=== PATIENT | male | born 1955 | race Caucasian/White ===

== ENCOUNTER 2021-09-07 09:44 | Inpatient (IN) ==
[~2021-09-07 09:44] MED LIST: 0.9 % Sodium Chloride 1,000 ML IVC ONE; Acetaminophen IV 1,000 MG/100 ML BAG IVPB ONE
[2021-09-07] MEDS ORDERED: Famotidine 20 MG/2 ML VIAL IVP ONE (10:00)
[2021-09-07] MEDS ORDERED: CeFAZolin Syr 2,000MG/20 ML 2,000 MG/20 ML SYRINGE IVPB ONE (10:14)
[2021-09-07] MEDS ORDERED: Ringers Solution, Lactated 1,000 ML IVC SCH (10:15)
[2021-09-07] MEDS ORDERED: *HR* FentaNYL (PF) 100 MCG/2 ML VIAL ONE (10:28)
[2021-09-07] MEDS ORDERED: *HR* Rocuronium Bromide 50 MG/5 ML VIAL ONE ×2 (10:28→12:48)
[2021-09-07] MEDS ORDERED: *HR* Propofol 200 MG/20 ML VIAL IVP ONE (10:28)
[2021-09-07] MEDS ORDERED: *HR* Midazolam HCl 2 MG/2 ML VIAL ONE (10:28)
[2021-09-07] MEDS ORDERED: Lidocaine -MPF 2% 5 ML VIAL ONE ×2 (10:28→14:21)
[2021-09-07] MEDS ORDERED: Ondansetron 4 MG/2 ML VIAL ONE (10:28)
[2021-09-07] MEDS ORDERED: *HR* HYDROMORPHONE 2 MG/ML VIAL ONE (10:28)
[2021-09-07] MEDS ORDERED: Ketamine HCL *QUVA* 50mg (1mL) SYRINGE ONE (10:31)
[2021-09-07] MEDS ORDERED: *HR* FentaNYL (PF) 100 MCG/2 ML VIAL IVP PRN ×2 (10:44→16:54)
[2021-09-07] MEDS ORDERED: *HR* HYDROmorphone (PF) 1 MG/ML SYRINGE IVP PRN (10:44)
[2021-09-07] MEDS ORDERED: Ondansetron 4 MG/2 ML VIAL IVP PRN ×2 (10:44→16:08)
[2021-09-07] MEDS ORDERED: Albuterol 2.5 MG/3 ML NEBULIZER IH PRN (10:44)
[2021-09-07] MEDS ORDERED: Naloxone 0.4 MG/ML INJ IVP PRN ×2 (10:44→16:08)
[2021-09-07] MEDS ORDERED: Nitroglycerin 0.4 MG TAB.SUBL SL PRN (10:44)
[2021-09-07] MEDS ORDERED: EPHEDrine 50 MG/ML VIAL ONE (11:22)
[2021-09-07] MEDS ORDERED: Sugammadex Sodium 200 MG/2 ML VIAL IV ONE (14:25)
[2021-09-07] MEDS ORDERED: *HR* Belladonna Alkaloids/Opium 30 MG RECTAL SUPPOSITORY RC PRN (16:08)
[2021-09-07] MEDS ORDERED: *HR* OxyCODONE Immed Rel 5 MG TABLET PO PRN (16:08)
[2021-09-07] MEDS ORDERED: *HR* HYDROcodone/Acet 5/325 mg TABLET PO PRN (16:08)
[2021-09-07] MEDS: 0.9 % Sodium Chloride 1,000 ML IVC SCH (16:33)
[2021-09-07] MEDS: *HR* OxyCODONE Immed Rel 5 MG TABLET PO PRN (16:36)
[2021-09-07] MEDS: Acetaminophen IV 1,000 MG/100 ML BAG IVPB SCH (17:01)
[2021-09-07] MEDS: CeFAZolin 2 GM/120 ML BAG IVPB SCH (20:55)
[2021-09-08] MEDS: Acetaminophen IV 1,000 MG/100 ML BAG IVPB SCH ×3 (00:30→16:11)
[2021-09-08] MEDS: *HR* OxyCODONE Immed Rel 5 MG TABLET PO PRN ×3 (03:33→20:58)
[2021-09-08 04:40] LABS: Hematocrit 40.2 % (37.5-50.1); Hemoglobin 13.2 g/dL (12.9-16.9); Immature Granulocytes % 0.3 % (0-4); Lymphocytes % 8.1 %; Mean Corpuscular HGB Conc 32.8 g/dL (31.6-35.5); Mean Corpuscular Hemoglobin 32.3 pg (28.0-33.3); Mean Corpuscular Volume 98.3 fL (83.0-100.0); Mean Platelet Volume 9.8 fL (9.4-12.4); Platelet Count 217 K/mcL (140-400); Red Blood Count 4.09 M/mcL (4.19-5.50); Red Cell Distribution Width 12.4 % (11.5-14.5); Segmented Neutrophils % 81.4 %; White Blood Count 12.4 K/mcL (4.3-11.1)
[2021-09-08 04:41] LABS: Basophils % 0.1 %; Monocytes # 1.3 K/mcL (0.0-1.3); Monocytes % 10.1 %; Neutrophils # 10.1 K/mcL (1.6-8.9)
[2021-09-08 04:57] LABS: BUN/Creatinine Ratio 20 (6-26); Blood Urea Nitrogen 15 mg/dL (8-23); Calcium 8.3 mg/dL (8.6-10.3); Carbon Dioxide 23 mEq/L (23-29); Chloride 105 mEq/L (98-107); Glucose 109 mg/dL (70-105); Osmolality,Calculated 283 (280-300); Sodium 136 mEq/L (136-145); eGFR For African Americans > 60 (> 60); eGFR For Non-African Americans > 60 (> 60)
[2021-09-08] MEDS: CeFAZolin 2 GM/120 ML BAG IVPB SCH (05:50)
[2021-09-08] MEDS: 0.9 % Sodium Chloride 1,000 ML IVC SCH ×2 (06:38→21:04)
[2021-09-08] MEDS ORDERED: Ketorolac 30 MG/ML VIAL IVP PRN (08:29)
[2021-09-08] MEDS: FLUoxetine 20 MG CAPSULE PO SCH (09:07)
[2021-09-08] MEDS: Nicotine 21 MG PATCH.TD24 TD SCH (09:07)
[2021-09-09] MEDS: Acetaminophen IV 1,000 MG/100 ML BAG IVPB SCH (01:01)
[2021-09-09] MEDS: FLUoxetine 20 MG CAPSULE PO SCH (08:46)
[2021-09-09] MEDS: Nicotine 21 MG PATCH.TD24 TD SCH (08:47)
[2021-09-09] MEDS ORDERED: Morphine Sulfate Oral CONC 10 MG/0.5 ML ORAL.SYG SL SCH (09:00)
[2021-09-09 10:22] VITALS: BP 130/65; PULSE 65; TEMP 97.9; O2SAT 93
== END 2021-09-09 11:08 | disposition home or self-care (01) | DRG 658 ==
LOC: SAMDAY 09:44 → 3ANU 15:51
PROVIDERS: ADMIT Urology; ATTEND Urology